=== PATIENT | female | born 1955 | race Two or more races ===

== ENCOUNTER → 2024-09-10 | Outpatient (CLI) | payer MEDICARE, MEDICAID, SELFPAY | END | disposition home or self-care (01) | LOC: SLDO 15:24 | PROVIDERS: PCP Nurse Practitioner Family; Referring Provider Nurse Practitioner Family; Visit Provider Nurse Practitioner Family | DX: N39.0 Urinary tract infection, site not specified (principal) | CPT/HCPCS: 87086 ==

== ENCOUNTER 2025-04-15 19:36 | Emergency (ER) | payer MEDICARE, MEDICAID, SELFPAY ==
[2025-04-15 19:38] VITALS: BMI 23.6
[2025-04-15 19:50] VITALS: BP 118/72; PULSE 94; RESP 18; TEMP 36.8; O2SAT 97
--- NOTE | 2025-04-15 19:56 | PD.EDRME ---
Rapid Medical Screening Exam RME Arrival date/time: 04/15/25 19:36 Chief Complaint: Extremity Injury, Lower Time Seen by Provider: 04/15/25 19:54 Vital signs: Vital Signs Temperature 98.3 F 04/15/25 19:50 Pulse Rate 94 04/15/25 19:50 Respiratory Rate 18 04/15/25 19:50 Blood Pressure 118/72 04/15/25 19:50 Pulse Oximetry (%) 97 04/15/25 19:50 Oxygen Delivery Method Room Air 04/15/25 19:50 RME Narrative: Mechanical fall with walker this evening, c/o left hip/thigh/knee pain. Ibuprofen taken [employer] tug [employer].
--- NOTE | 2025-04-15 19:59 | XR_ITS ---
Examination: Knee, left , 3 views Technique: Knee AP, lateral, oblique 3 views Date and time of exam: April 15, 20252001 hours INDICATIONS: Patient fell today with injury to the knee, knee pain. FINDINGS: No acute fracture No dislocation No foreign body IMPRESSION: No acute fracture
--- NOTE | 2025-04-15 19:59 | XR_ITS ---
Examination:Left hip AP, lateral, AP pelvis 3 views Technique: Hip AP lateral, AP pelvis, 3 views Exam date and time:April 15, 20252004 hours INDICATIONS: Patient fell today with injury to the left hip, left hip pain FINDINGS: Acute angulated intertrochanteric fracture left hip Left inferior pubic ramus also appears fractured Right hip intact IMPRESSION: Acute angulated intertrochanteric fracture left hip Fracture left inferior pubic ramus.
--- NOTE | 2025-04-15 19:59 | XR_ITS ---
Examination: Left femur 2 views TECHNIQUE: AP lateral left femur 2 views Date and time: April 15, 20252005 hours INDICATIONS: Patient fell today with injury to the femur, femur pain. FINDINGS: Acute angulated intertrochanteric fracture left hip Shaft of the femur intact IMPRESSION: Acute angulated intertrochanteric fracture left hip
[2025-04-15] MEDS: ACETAMINOPHEN 500 MG TABLET 1000 MG PO (20:43)
--- NOTE | 2025-04-15 22:03 | PD.EDLOWEX ---
Lower Extremity Injury RME/HPI General Chief Complaint: Extremity Injury, Lower Stated Complaint: fall Time Seen by Provider: 04/15/25 19:54 Arrival date/time: 04/15/25 19:36 RME / HPI RME / HPI Narrative: 69-year-old female patient with significant history of diabetes mellitus hypertension, mental retardation, seizure disorder, hypothyroidism, psychiatric problem, was brought in by caregiver for evaluation regarding left hip pain. Patient sustained a ground-level fall while walking with a walker. She landed on her left hip. Since then she is unable to ambulate due to pain. Patient did not hit her head. No LOC no nausea no vomiting. Patient was given Motrin prior to ER visit. Related Data Home Medications ?Medication ?Instructions ?Recorded ?Confirmed metformin 500 mg tablet 1,000 mg PO BID ##0 08/06/10 04/15/25 clonidine HCl 0.2 mg tablet 0.2 mg PO BID #0 tabs 04/20/17 04/15/25 (Catapres) metoprolol succinate 50 mg 50 mg PO QDAY ##0 04/20/17 04/15/25 tablet,extended release 24 hr (Toprol XL) divalproex 500 mg tablet,extended 500 mg PO QDAY 01/20/19 04/15/25 release 24 hr glimepiride 4 mg tablet 4 mg PO QAM 01/20/19 04/15/25 loratadine 10 mg tablet 10 mg PO QDAY 01/20/19 04/15/25 quetiapine 300 mg tablet,extended 300 mg PO QPM 01/20/19 04/15/25 release 24 hr simvastatin 20 mg tablet 20 mg PO QPM 01/20/19 04/15/25 pioglitazone 15 mg tablet 15 mg PO QDAY 11/13/19 04/15/25 amlodipine 10 mg tablet 10 mg PO QDAY 04/15/25 04/15/25 cyanocobalamin (vitamin B-12) 1,000 mcg PO QDAY 04/15/25 04/15/25 1,000 mcg tablet (Vitamin B-12) folic acid 1 mg tablet 1 mg PO QDAY 04/15/25 04/15/25 levothyroxine 100 mcg tablet 100 mcg PO QDAY 04/15/25 04/15/25 (Levo-T) linagliptin 5 mg tablet (Tradjenta) 5 mg PO QDAY 04/15/25 04/15/25 Allergies Allergy/AdvReac Type Severity Reaction Status Date / Time canagliflozin (From Invokana) Allergy Rash Verified 04/15/25 19:43 sulfamethoxazole (From Allergy Rash Verified 04/15/25 19:43 Bactrim) trimethoprim (From Bactrim) Allergy Rash Verified 04/15/25 19:43 Review of Systems Review of Systems Narrative Review of Systems: Review of system reviewed and within normal limits except mentioned in HPI ED Exam Narrative Physical exam: VITAL SIGNS: Reviewed. GENERAL APPEARANCE: Alert and interactive, follows commands, no acute distress, HEAD AND FACE: Non-traumatic. ENT: PERRL, pale conjunctiva, eyelid no trauma, Mucous membrane moist. NECK: Supple, nontender, no nuchal rigidity. CHEST: No tenderness, no crepitus, no paradoxical movement, no retractions. LUNGS: Clear, well ventilated, symmetric, no rales, no wheezing, no ronchi, no stridor, good breath sounds bilaterally. HEART: Regular rate, regular rhythm, no murmur, no gallops. ABDOMEN: Soft, positive bowel sounds, nondistended, no guarding, nontender, no rebound, no masses, RECTAL: Deferred. GENITAL: Deferred. NEUROLOGICAL: Gross motor function intact sensory function intact, Appropriate for age. MUSCULOSKELETAL: low back nontender, full range of motion. EXTREMITIES: Nontender, full range of motion. SKIN: Color pale, dry, no rash, no lacerations, no abrasions, no contusions. LYMPHATICS: Deferred. Course Quality Measures none Orders Category Date Time Status Insert IV NOW Care 04/15/25 22:18 Active XR femur LT 2V Stat Exams 04/15/25 19:59 Completed XR hip LT w pelvis 2-3V Stat Exams 04/15/25 19:59 Completed XR knee LT 3V Stat Exams 04/15/25 19:59 Completed CBC [CBC] Stat Lab 04/15/25 22:14 Completed CMP [Comprehensive Metabolic Panel] Stat Lab 04/15/25 22:14 Completed PTT [Partial Thromboplastin Time] Stat Lab 04/15/25 22:14 Completed Acetaminophen Tab [Tylenol ES Tab] Med 04/15/25 19:59 Discontinued 1,000 mg PO X1 ONE Sodium Chloride 0.9% 1000 ml [Ns] 1,000 ml Med 04/15/25 23:00 Active IV 999 mls/hr Vital Signs Vital signs: Vital Signs Temperature 98.3 F 04/15/25 19:50 Pulse Rate 94 04/15/25 19:50 Respiratory Rate 18 04/15/25 19:50 Blood Pressure 118/72 04/15/25 19:50 Pulse Oximetry (%) 97 04/15/25 19:50 Oxygen Delivery Method Room Air 04/15/25 19:50 Extremity Injury, Lower MDM Narrative MDM Narrative:: 69-year-old female patient with significant history of diabetes mellitus hypertension, mental retardation, seizure disorder, hypothyroidism, psychiatric problem, was brought in by caregiver for evaluation regarding left hip pain. Patient sustained a ground-level fall while walking with a walker. She landed on her left hip. Since then she is unable to ambulate due to pain. Patient did not hit her head. No LOC no nausea no vomiting. Patient was given Motrin prior to ER visit. X-ray of the hip showed left intertrochanteric fracture, angulated. CBC showed hemoglobin of 9.5, hematocrit of 27.1 sodium 118 chloride of 87 Corrected sodium was noted to be 120. Patient is to be transferred to higher level care we do not have an orthopedic surgeon on-call today Spoke with transfer center from [facility] , who accepted the patient, accepting orthopedic surgeon Dr. Nichols Patient was given IV NS for sodium of 118, patient has history of chronic hyponatremia. Patient is not having any seizure-like activity at this time Patient data External records reviewed:: None Clinical information provided by:: patient Social determinants that could affect healthcare access:: none Patient has the following chronic illnesses:: Diabetes mellitus hypertension, psychiatric problem, hypothyroidism chronic anemia How is presenting disease/condition affected by chronic disease/condition?: exacerbated by Evaluation data The following diagnostics were reviewed and interpreted by me:: lab results and radiology exam(s) Lab and/or radiology exams considered but not ordered:: None Interpretation Summary: See results [facility] Medications / Prescriptions Medications or Prescriptions considered but not ordered:: None Medication administrations:: Medication Administration History Sodium Chloride (Ns) 1,000 mls @ 999 mls/hr IV .Q1H1M ONE Stop: 04/16/25 00:00 Discontinued Medications Acetaminophen (Acetaminophen 500 Mg Tablet) 1,000 mg PO X1 ONE Stop: 04/15/25 20:00 Last Admin: 04/15/25 20:43 Dose: 1,000 mg Documented By: OA IV fluids, Tylenol Consultations Consultation(s) initiated? (list below): No Diagnosis Extremity Injury, Lower Differential Diagnosis: fracture of femur and fracture of hip Most likely diagnosis given after review of the tests above:: Intertrochanteric fracture of the left femur, hyponatremia, fall, diabetes mellitus hypertension Admission Indicated Admission indicated?: indicated Admission Request Was there a request for admission?: No Disposition Plan Disposition Plan: Transfer Discharge Plan Plan Patient Disposition: [facility] Facility Pt Being Transferred to: [facility] Prescriptions/Referrals Prescriptions/Med Rec: No Action metformin 500 mg Tablet 1,000 mg PO BID Qty: 0 metoprolol succinate [Toprol XL] 50 MG tablet extended release 24 hr 50 mg PO QDAY Qty: 0 clonidine HCl [Catapres] 0.2 MG tablet 0.2 mg PO BID Qty: 0 pioglitazone 15 mg Tablet 15 mg PO QDAY simvastatin 20 mg Tablet 20 mg PO QPM glimepiride 4 mg Tablet 4 mg PO QAM divalproex 500 mg Tablet Extended Release 24 Hr 500 mg PO QDAY loratadine 10 mg Tablet 10 mg PO QDAY quetiapine 300 mg Tablet Extended Release 24 Hr 300 mg PO QPM Tradjenta 5 mg tablet 5 mg PO QDAY cyanocobalamin (vitamin B-12) [Vitamin B-12] 1,000 mcg tablet 1,000 mcg PO QDAY amlodipine 10 mg tablet 10 mg PO QDAY folic acid 1 mg tablet 1 mg PO QDAY levothyroxine [Levo-T] 100 mcg tablet 100 mcg PO QDAY Problem List Clinical Impression: Hyponatremia, Closed intertrochanteric fracture of femur, Fall Patient/Caregiver Discharge Instructions Print Language: Finnish Stand Alone Forms: Erica Award Info., Patient Portal Info Letter
[2025-04-15 22:24] VITALS: BP 94/63; PULSE 78; RESP 16; O2SAT 96
--- NOTE | 2025-04-15 22:28 | PC.NURSE ---
Pt was using walker when she fell. Pt was unable to get up after the fall. Shortening noted to left leg. Positive distal pulses noted bilaterally. Pt is currently resting on stretcher with caregiver at bedside.
[2025-04-15 22:32] LABS: Basophils # (Auto) 0.0 Thou/mm3 (0.0-0.2); Basophils % (Auto) 0 % (0-2.5); Eosinophils # (Auto) 0.0 Thou/mm3 (0.0-0.5); Eosinophils % (Auto) 0 % (0-10); Hematocrit 27.1 % (36.0-46.0); Hemoglobin 9.5 g/dL (12.0-16.0); Immature Granulocytes Auto 0.08 Thou/mm3 (0.00-0.00); Lymphocytes # (Auto) 1.9 Thou/mm3 (1.0-4.8); Lymphocytes % (Auto) 19 % (10-50); Mean Corpuscular HGB Conc 35.1 g/dl (31.0-37.0); Mean Corpuscular Hemoglobin 32.1 pg (25.0-35.0); Mean Corpuscular Volume 92 fL (80-100); Monocytes # (Auto) 0.8 Thou/mm3 (0.0-0.8); Monocytes % (Auto) 8 % (0-12); Neutrophils # (Auto) 7.4 Thou/mm3 (1.8-7.7); Neutrophils % (Auto) 73 % (37-80); Nucleated Red Blood Cell # 0.00 Thou/mm3 (0.00-0.00); Nucleated Red Blood Cell % 0 /100 WBC (0); Platelet Count 140 Thou/mm3 (140-440); RDW Standard Deviation 45.2 fL (36.4-46.3); Red Blood Count 2.96 Miln/mm3 (4.00-5.20); White Blood Count 10.2 Thou/mm3 (3.6-11.0)
[2025-04-15 22:49] LABS: Partial Thromboplastin Time 27.5 Seconds (22.0-36.0)
[2025-04-15 22:52] LABS: Alanine Aminotransferase < 7 U/L (10-49); Albumin, Serum 3.6 gm/dL (3.4-4.8); Albumin/Globulin Ratio 1.3 (1.2-2.2); Alkaline Phosphatase 51 U/L (46-116); Anion Gap 9 (7-16); Aspartate Amino Transferase 19 U/L (0-34); BUN/Creatinine Ratio 24 Ratio (12-20); Bilirubin,Total 0.2 mg/dL (0.3-1.2); Blood Urea Nitrogen 19 mg/dL (9-23); Calcium 8.3 mg/dL (8.3-10.6); Calcium (Corrected) 8.6 mg/dL (8.5-10.1); Carbon Dioxide 21.7 mMol/L (20.0-31.0); Chloride 87 mMol/L (98-107); Creatinine (Component) 0.8 mg/dL (0.6-1.3); Estimated Creatinine Clearance 46.5 mL/min (>60); Globulin 2.7 gm/dL (2.3-3.5); Glucose 214 mg/dL (74-106); Osmolality,Calculated 246 (275-295); Potassium 4.7 mMol/L (3.4-5.1); Total Protein 6.3 gm/dL (5.7-8.2); eGFR > 60 See Note
[2025-04-15 22:59] VITALS: BP 108/66; PULSE 73; RESP 15; O2SAT 97
[2025-04-15 22:59] LABS: Sodium 118 mMol/L (136-145)
--- NOTE | 2025-04-15 23:00 | PC.NURSE ---
FAXED INFORMATION AND CALLED [facility], MARYJO JOHNSON TALKED TO KAITLYNN ERNANDEZ.
[2025-04-15] MEDS: SODIUM CHLORIDE 0.9% 1000 ML 1,000 ML 999 ML IV (23:07)
--- NOTE | 2025-04-15 23:15 | PC.NURSE ---
PT ACCEPTED TO [facility] ED TO ED AT [address] SHEPPARD.
[2025-04-15 23:57] VITALS: BP 105/75; PULSE 74; RESP 17; TEMP 36.7; O2SAT 95
== END 2025-04-16 00:50 | disposition short-term general hospital (02) ==
LOC: SERX 23:54
PROVIDERS: Nurse Practitioner Family; Emergency Provider Emergency Medicine; PCP Family Medicine
DX: S72.142A Displaced intertrochanteric fracture of left femur, initial encounter for closed fracture (principal); E87.1 Hypo-osmolality and hyponatremia; E11.9 Type 2 diabetes mellitus without complications; I10 Essential (primary) hypertension; F79 Unspecified intellectual disabilities; G40.909 Epilepsy, unspecified, not intractable, without status epilepticus; E03.9 Hypothyroidism, unspecified; W18.30XA Fall on same level, unspecified, initial encounter; Y93.01 Activity, walking, marching and hiking; Z88.1 Allergy status to other antibiotic agents; Z88.2 Allergy status to sulfonamides; Z79.84 Long term (current) use of oral hypoglycemic drugs; Z79.890 Hormone replacement therapy; Z79.899 Other long term (current) drug therapy
CPT/HCPCS: 36415; 73502; 73552; 73562; 80053; 85025; 85730; 96360; 99283; J7030; A9270